=== PATIENT | male | born 1985 | race Caucasian/White ===

== ENCOUNTER → 2022-03-11 11:59 | Outpatient (BNVA) | payer BC, SELFPAY | PROVIDERS: PCP Nurse Practitioner Family; Visit Provider Nurse Practitioner Family | DX: E11.9 Type 2 diabetes mellitus without complications (principal); E78.5 Hyperlipidemia, unspecified; N52.9 Male erectile dysfunction, unspecified | CPT/HCPCS: 80053; 80061; 83036 ==

== ENCOUNTER 2022-12-16 05:37 | Emergency (ER) | payer BC, MEDICAID, SELFPAY ==
[2022-12-16 05:41] VITALS: BP 168/91; PULSE 88; RESP 18; TEMP 36.9; O2SAT 97; BMI 50.1
[2022-12-16 05:57] VITALS: BP 151/90; PULSE 86; RESP 20; O2SAT 94
--- NOTE | 2022-12-16 05:58 | USR_ITS ---
PROCEDURE INFORMATION: Exam: US Scrotum Exam date and time: 12/16/2022 6:16 AM Age: 37 years old Clinical indication: Scrotum pain and other: Inf to scrotum; Prior surgery; Surgery date: 6+ months; Surgery type: Cyst removal per PT; Additional info: Abscess/nodule TECHNIQUE: Imaging protocol: Real-time ultrasound of the scrotum and contents with color Doppler and image documentation. COMPARISON: No relevant prior studies available. FINDINGS: Right testicle: Right testis measures 3.2 by 2.5 by 5.2 cm. No intratesticular mass. Intratesticular blood flow demonstrated. Left testicle: Left testis measures 3.1 x 2.2 by 3.8 cm. No intratesticular mass. Intratesticular blood flow demonstrated. Epididymides: Subcentimeter epididymal cysts. Scrotum/soft tissues: Complex lobulated cystic collection in the left scrotum with surrounding hyperemia, suggesting abscess, measuring 3.8 x 1.3 by 4.0 cm. Trace hydroceles. US/US scrotum [id number] IMPRESSION: Complex lobulated cystic collection in the left scrotum with surrounding hyperemia, suggesting abscess, measuring 3.8 x 1.3 by 4.0 cm. The aforementioned findings initiated a critical results communication pathway. An addendum will be issued at the time of clincian notification.
--- NOTE | 2022-12-16 06:01 | W.ED.WOUNDLC ---
HPI - Wound/Laceration General: Chief Complaint: Wound/Laceration Stated Complaint: Cist on man Parts Time Seen by Provider: 12/16/22 05:52 Source: patient Mode of arrival: ambulatory History of Present Illness: 37-year-old male presents emergency room with complaints of a nodule on the base of his scrotum. He has had this previously. He has not been draining inflamed it has been tender and thickened. He has a history of diabetes mellitus although he states he is not on any medications patient is morbidly obese with a BMI of 50. He has had a previous similar episode did not require any surgical intervention. Onset (ago): hour(s) Location: genitals Place: home Associated symptoms: Denies chills, fever(s), foreign body sensation, inability to move, nausea, numbness, pain, syncope or vomiting Review of Systems Const: Denies: fever(s) or chills Card: Denies: syncope Resp: Denies: dyspnea, productive cough or non-productive cough GI: Denies: nausea or vomiting : Denies: flank pain, dysuria, urinary frequency or urinary urgency Skin/Breast: Denies: rash or pruritus PFSH ED PFSH: Family History Father Diabetes Social History Smoking and tobacco status: current every day smoker Physical Exam Const: GENERAL APPEARANCE: cooperative and comfortable ORIENTATION/CONSCIOUSNESS: Yes awake, Yes oriented to person, Yes oriented to place and Yes oriented to time HENMT: COMMON NORMALS: normocephalic, atraumatic and hearing grossly normal bilaterally HEAD & SCALP: normocephalic and atraumatic Resp: COMMON NORMALS: normal respiratory effort, No retractions, No use of accessory muscles and clear to auscultation bilaterally AUSCULTATION: clear to auscultation bilaterally Cardio: COMMON NORMALS: regular rate, regular rhythm and No murmurs present (Cardio) RATE: regular rate RHYTHM: regular rhythm : OTHER: Moderate thickening at the base of the scrotum at the midline. Palpably tender no redness no erythema no fluctuance Extremity: COMMON NORMALS: normal to inspection, capillary refill normal, no clubbing, cyanosis or edema, no calf tenderness and no pedal edema Neuro: SENSORIUM/ORIENTATION: Yes oriented to person, Yes oriented to place and Yes oriented to time Skin: COMMON NORMALS: no rashes or lesions noted GENERAL SKIN EXAM: no rashes or lesions noted Course Vital Signs: Vital signs: Vital Signs Temperature 98.4 F 12/16/22 05:41 Pulse Rate 86 12/16/22 05:57 Respiratory Rate 18 12/16/22 08:05 Blood Pressure 111/59 12/16/22 09:50 Pulse Oximetry 95 12/16/22 08:05 Oxygen Delivery Me thod Room Air 12/16/22 08:05 MDM - Wound/Laceration Medical Decision Making Scrotal abscess 4 x 4 x 1 cm on the left. Lab work added including cultures. Gram of vancomycin. Unfortunately we no longer have urology available at our facility and will have to transfer patient for incision and drainage. [facility] service is excepted the patient will be transferred by Andreas Avery. Blood cultures done initial dose of vancomycin given. Medical Records I reviewed the patient's medical records. Lab Data I reviewed the patient's lab results. 12/16/22 06:50 12/16/22 06:50 Radiology Impressions Scrotum Ultrasound 12/16/22 05:58 IMPRESSION: Complex lobulated cystic collection in the left scrotum with surrounding hyperemia, suggesting abscess, measuring 3.8 x 1.3 by 4.0 cm. The aforementioned findings initiated a critical results communication pathway. An addendum will be issued at the time of clincian notification. ADDENDUM: 12/16/22 0638 THIS REPORT CONTAINS FINDINGS THAT MAY BE CRITICAL TO PATIENT CARE. The findings were verbally communicated via telephone conference with BOBBY Dorado at 6:37 AM CDT on 12/16/2022. The findings were acknowledged and understood. Laboratory Results WBC 12.4 10^3/uL (4.0-10.0) H 12/16/22 06:50 RBC 6.16 10^6/uL (4.1-5.3) H 12/16/22 06:50 Hgb 17.8 g/dL (11.7-16.6) H 12/16/22 06:50 Hct 52.2 % (42.0-52.0) H 12/16/22 06:50 MCV 84.7 fl (80-94) 12/16/22 06:50 MCH 28.9 pg (28.0-34.0) 12/16/22 06:50 MCHC 34.1 g/dL (30.0-36.0) 12/16/22 06:50 RDW 12.7 % (12.1-15.1) 12/16/22 06:50 Plt Count 259 10^3/cmm (130-400) 12/16/22 06:50 MPV 10.7 fL (7.4-10.4) H 12/16/22 06:50 Neut % (Auto) 70.0 % 12/16/22 06:50 Lymph % (Auto) 20.5 % 12/16/22 06:50 [place] % (Auto) 6.3 % 12/16/22 06:50 Eos % (Auto) 1.7 % 12/16/22 06:50 Baso % (Auto) 0.8 % 12/16/22 06:50 Neut # (Auto) 8.65 10^3/uL (1.8-7.7) H 12/16/22 06:50 Lymph # (Auto) 2.5 10^3/uL (0.8-4.8) 12/16/22 06:50 [place] # (Auto) 0.8 10^3/uL (0.2-0.9) 12/16/22 06:50 Eos # (Auto) 0.2 10^3/uL (0.0-0.8) 12/16/22 06:50 Baso # (Auto) 0.1 10^3/uL (0.0-0.1) 12/16/22 06:50 Nucleated RBC % (auto) 0 % 12/16/22 06:50 Nucleated RBCs # 0.0 /100WBC 12/16/22 06:50 Sodium 137 mmol/L (136-145) 12/16/22 06:50 Potassium 4.1 mmol/L (3.5-5.1) 12/16/22 06:50 Chloride 101 mmol/L (98-107) 12/16/22 06:50 Carbon Dioxide 26 mmol/L (22-29) 12/16/22 06:50 Anion Gap 14.1 (5-19) 12/16/22 06:50 BUN 14 mg/dL (6-20) 12/16/22 06:50 Creatinine 0.7 mg/dL (0.7-1.2) 12/16/22 06:50 GFR Calculation 125.5 mL/min (90-130) 12/16/22 06:50 Glucose 216 mg/dL (65-115) H 12/16/22 06:50 Calculated Osmolality 291 mOsm/kg (285-295) 12/16/22 06:50 Calcium 8.8 mg/dL (8.5-10.5) 12/16/22 06:50 Total Bilirubin 1.8 mg/dL (0.15-1.2) H 12/16/22 06:50 AST 12 U/L (0-40) 12/16/22 06:50 ALT 21 U/L (0-41) 12/16/22 06:50 Alkaline Phosphatase 70 U/L (40-130) 12/16/22 06:50 Total Protein 7.1 g/dL (6.6-8.7) 12/16/22 06:50 Albumin 4.1 g/dL (3.5-5.2) 12/16/22 06:50 Globulin 3.0 g/dL (1.3-4.6) 12/16/22 06:50 Urine Color Yellow (Yellow) 12/16/22 07:00 Urine Appearance Clear (CLEAR) 12/16/22 07:00 Urine pH 5 (5-7) 12/16/22 07:00 Ur Specific [place] 1.020 (1.005-1.030) 12/16/22 07:00 Urine Protein Neg (Negative) 12/16/22 07:00 Urine Glucose (UA) 4+ (Normal) H 12/16/22 07:00 Urine Ketones 1+ (Negative) H 12/16/22 07:00 Urine Blood Neg (Negative) 12/16/22 07:00 Urine Nitrate Negative (Negative) 12/16/22 07:00 Urine Bilirubin Neg (Negative) 12/16/22 07:00 Urine Urobilinogen Norm mg/dL (Negative) 12/16/22 07:00 Ur Leukocyte Esterase Negative (Negative) 12/16/22 07:00 Discharge Plan Discharge Patient Disposition: Xfer Short-Term Hosp Clinical Impression: Scrotum, abscess Condition: Stable Referrals: [place] [Primary Care Provider] - Patient Instructions: Opioid Safety, Pain Management Coding Level of Care Code ED [employer] [facility] for Chantal Mary
[2022-12-16 06:20] VITALS: BP 152/104; O2SAT 94
[2022-12-16 07:12] LABS: Basophils # 0.1 10^3/uL (0.0-0.1); Basophils % 0.8 %; Eosinophils # 0.2 10^3/uL (0.0-0.8); Eosinophils % 1.7 %; Hematocrit 52.2 % (42.0-52.0); Hemoglobin 17.8 g/dL (11.7-16.6); Lymphocytes # 2.5 10^3/uL (0.8-4.8); Lymphocytes % 20.5 %; Mean Corpuscular HGB Conc 34.1 g/dL (30.0-36.0); Mean Corpuscular Hemoglobin 28.9 pg (28.0-34.0); Mean Corpuscular Volume 84.7 fl (80-94); Mean Platelet Volume 10.7 fL (7.4-10.4); Monocytes # 0.8 10^3/uL (0.2-0.9); Monocytes % 6.3 %; Neutrophils # 8.65 10^3/uL (1.8-7.7); Nucleated Red Blood Cells % 0 %; Platelet Count 259 10^3/cmm (130-400); Red Blood Count 6.16 10^6/uL (4.1-5.3); Red Cell Distribution Width 12.7 % (12.1-15.1); White Blood Count 12.4 10^3/uL (4.0-10.0)
[2022-12-16 07:13] LABS: Add Urine Microscopic? NO; Charge for UA Resulting for Rev
[2022-12-16 07:27] LABS: Bilirubin Urine Neg (Negative); Blood Urine Neg (Negative); Glucose Urine UA 4+ (Normal); Ketones Urine 1+ (Negative); Leukocyte Esterase Urine Negative (Negative); Nitrate Urine Negative (Negative); Protein Urine Neg (Negative); Urine Appearance Clear (CLEAR); Urine Color Yellow (Yellow); Urobilinogen Urine Norm (Negative); pH Urine 5 (5-7)
[2022-12-16 07:30] LABS: Alanine Aminotransferase 21 U/L (0-41); Albumin Level 4.1 g/dL (3.5-5.2); Alkaline Phosphatase 70 U/L (40-130); Anion Gap 14.1 (5-19); Aspartate Amino Transferase 12 U/L (0-40); Blood Urea Nitrogen 14 mg/dL (6-20); Calcium 8.8 mg/dL (8.5-10.5); Carbon Dioxide 26 mmol/L (22-29); Chloride 101 mmol/L (98-107); Glomerular Filtration Rate 125.5 mL/min (90-130); Glucose 216 mg/dL (65-115); Osmolality Calculated 291 mOsm/kg (285-295); Potassium 4.1 mmol/L (3.5-5.1); Sodium 137 mmol/L (136-145); Total Bilirubin 1.8 mg/dL (0.15-1.2); Total Protein 7.1 g/dL (6.6-8.7)
[2022-12-16] MEDS: vancomycin 1,000 MG in sodium chloride 0.9% 250 ML 250 MG IV (07:30)
[2022-12-16] MEDS: ondansetron 2 mg/ML SDV 2 mL 4 MG IVP (08:04)
[2022-12-16] MEDS: morphine 4 mg/mL SDV 1 mL 2 MG IVP ×2 (08:04→11:37)
[2022-12-16 08:05] VITALS: BP 131/68; RESP 18; O2SAT 95
[2022-12-16 09:50] VITALS: BP 111/59
[2022-12-17 04:04] LABS: Bacillus cereus group Not Detected (NOT DETECT); Bacillus subtillis group Not Detected (NOT DETECT); Corynebacterium Not Detected (NOT DETECT); Cutibacterium acnes (P.acnes) Not Detected (NOT DETECT); Enterococcus Not Detected (NOT DETECT); Enterococcus faecalis Not Detected (NOT DETECT); Enterococcus faecium Not Detected (NOT DETECT); Lactobacillus species Not Detected (NOT DETECT); Listeria Not Detected (NOT DETECT); Listeria monocytogenes Not Detected (NOT DETECT); Micrococcus Not Detected (NOT DETECT); Pan Candida Not Detected (NOT DETECT); Pan Gram-Negative Not Detected (NOT DETECT); Staphylococcus epidermidis Detected (NOT DETECT); Staphylococcus lugdunensis Not Detected (NOT DETECT); Staphylococcus species Detected (NOT DETECT); Streptococcus agalactiae Not Detected (NOT DETECT); Streptococcus anginosus group Not Detected (NOT DETECT); Streptococcus pneumoniae Not Detected (NOT DETECT); Streptococcus pyogenes Not Detected (NOT DETECT); Streptococcus species Not Detected (NOT DETECT); mecA Not Detected (NOT DETECT); mecC Not Detected (NOT DETECT)
--- NOTE | 2022-12-17 04:52 | PC.NURSE ---
Preliminary results of 1/4 blood culture bottles gram positive in pairs called to JAMAR Null at [facility]
== END 2022-12-16 13:06 | disposition short-term general hospital (02) ==
PROVIDERS: Emergency Provider Family Medicine; PCP Nurse Practitioner Family
DX: N49.2 Inflammatory disorders of scrotum (principal); F17.210 Nicotine dependence, cigarettes, uncomplicated
CPT/HCPCS: 36415; 76870; 80053; 81003; 85025; 87040; 87150; 87186; 87205; 96365; 96366; 96375; 96376; 99284; J2270; J2405; J3370; J7050